=== PATIENT | female | born 2000 | race Caucasian/White ===

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

== ENCOUNTER 2020-10-13 13:12 | Emergency (ER) | payer OTHER ==
[~2020-10-13] VITALS: Wt 79.4 kg
== END 2020-10-13 15:25 | disposition home or self-care (01) ==
LOC: ED 13:12
DX: J02.9 Acute pharyngitis, unspecified (principal)